=== PATIENT | male | born 2000 | race Two or more races ===

== ENCOUNTER 2021-05-09 19:22 | Emergency (ER) | payer SELFPAY ==
[~2021-05-09] VITALS: Ht 172.7 cm; Wt 80.7 kg
[2021-05-09 23:00] VITALS: BP 134/78
== END 2021-05-09 23:16 | disposition home or self-care (01) ==
LOC: ER 19:22
DX: T26.31XA Burns of other specified parts of right eye and adnexa, initial encounter (principal); Z88.0 Allergy status to penicillin; X08.8XXA Exposure to other specified smoke, fire and flames, initial encounter; Y93.89 Activity, other specified; Y92.89 Other specified places as the place of occurrence of the external cause; Y99.8 Other external cause status

== ENCOUNTER 2024-05-21 20:08 | Emergency (ER) | payer MEDICAID ==
[~2024-05-21] VITALS: Ht 172.7 cm; Wt 78.8 kg
[2024-05-21 20:50] LABS: Basophils # (auto) 0 10 ^3/uL (0-0.2); Basophils % (auto) 0.5 % (0.0-2.0); Eosinophils # (auto) 0.1 10 ^3/uL (0-0.8); Eosinophils % (auto) 1.1 % (0.0-7.0); Hematocrit 44.9 % (41.0-53.0); Hemoglobin 15.7 g/dL (13.5-17.5); Lymphocytes # (auto) 1.9 10 ^3/uL (0.4-5.4); Lymphocytes % (auto) 28.9 % (10.0-50.0); Mean Corpuscular Hgb Conc. 34.9 g/dL (32.0-36.0); Mean Corpuscular Volume 88.9 fL (80.0-100.0); Monocytes # (auto) 0.5 10 ^3/uL (0-1.3); Monocytes % (auto) 7.2 % (0.0-12.0); Neutrophils # (auto) 4.2 10 ^3/uL (1.6-8.6); Neutrophils % (auto) 62.3 % (37.0-80.0); Red Blood Cells 5.05 10^6/uL (4.5-5.90); Red Cell Distribution Width 13.6 % (11.8-14.3); White Blood Cell 6.7 10^3/uL (4.4-10.8)
[2024-05-21 20:58] LABS: Chloride 104 mmol/L (98-107); Potassium 3.8 mmol/L (3.5-5.1); Sodium 136 mmol/L (136-145)
[2024-05-21 20:59] LABS: Anion Gap 5 (5-15); Calcium 9.8 mg/dL (8.7-10.4); Carbon Dioxide 27 mmol/L (20-30)
[2024-05-21 21:04] LABS: BUN/Creatinine Ratio 9.8 (10.0-20.0); Blood Urea Nitrogen 9 mg/dL (9-23); Glucose 107 mg/dL (74-106)
[2024-05-21] MEDS ORDERED: IBUP-1455 PO (21:20)
[2024-05-21] MEDS ORDERED: MECL1TAB42 PO (21:20)
[2024-05-21 23:20] VITALS: BP 114/84; PULSE 66; RESP 17; TEMP 98.5; O2SAT 100
== END 2024-05-21 23:22 | disposition home or self-care (01) ==
LOC: ER 20:08
DX: R51.9 Headache, unspecified (principal); M54.2 Cervicalgia
CPT/HCPCS: 36415; 70450; 72040; 80048; 85025

== ENCOUNTER 2024-06-09 02:28 | Emergency (ER) | payer MEDICAID ==
[~2024-06-09] VITALS: Ht 175.3 cm; Wt 77.0 kg
[~2024-06-09 02:28] MED LIST: IBUP-1455 PO; MECL1TAB42 PO
[2024-06-09] MEDS ORDERED: BUTA-259 PO (07:22)
[2024-06-09 07:37] VITALS: BP 125/78; PULSE 92; RESP 16; TEMP 98; O2SAT 97
[2024-06-09] MEDS: DOCUSATE SOD 100 MG CAP PO ONE (08:03)
== END 2024-06-09 09:34 | disposition home or self-care (01) ==
LOC: ER 02:28
DX: G44.219 Episodic tension-type headache, not intractable (principal)